=== PATIENT | male | born 1960 | race Caucasian/White ===

== ENCOUNTER → 2020-08-17 | Outpatient (CLI) | payer MEDICARE, BC | LOC: CT 07-30 13:30 | DX: M48.8X2 Other specified spondylopathies, cervical region (principal); M48.02 Spinal stenosis, cervical region; M51.34 Other intervertebral disc degeneration, thoracic region; R91.8 Other nonspecific abnormal finding of lung field; K76.9 Liver disease, unspecified; N28.89 Other specified disorders of kidney and ureter; I65.23 Occlusion and stenosis of bilateral carotid arteries; M25.78 Osteophyte, vertebrae | CPT/HCPCS: 70498; 72125; 72128; Q9967 ==

== ENCOUNTER → 2021-06-18 | Outpatient (CLI) | payer MEDICARE, BC ==
[~2021-06-18] MED LIST: AMLODIPINE BESYL5 MG PO; CRESTOR10 MG PO; CYMBALTA60 MG PO; DOCUSATE SODIU100 MG PO; FLOMAX 0.4 MG0.4 MG PO; HYDROCORTISONE10 MG PO; HYDROCORTISONE20 MG PO; LOSARTAN POTASS50 MG PO; NEURONTIN 100100 MG PO; NICOTINE PATCH1 EAC1 TD; PROTONIX 40 MG40 M1 PO; TESTOSTERONE CYP; TRAZODONE HCL100 MG PO; ULTRAM50 MG PO
[2021-06-18 09:06] LABS: RED BLOOD COUNT 4.7 M/UL (4.20-5.50); WHITE BLOOD COUNT 10.2 K/UL (4.5-11.0)
[2021-06-18 10:08] LABS: BUN/CREATININE RATIO 9 (0-10)
== END ==
LOC: OPSV2 08:00 → EDSTATUS 08:00 → OPSV2 08:16
PROVIDERS: Orthopaedic Surgery
DX: Z01.818 Encounter for other preprocedural examination (principal); G95.9 Disease of spinal cord, unspecified; M54.12 Radiculopathy, cervical region; I45.10 Unspecified right bundle-branch block
CPT/HCPCS: 36415; 71046; 80048; 81001; 85025; 85610; 85730; 87081; 93005

== ENCOUNTER → 2021-06-24 | Outpatient (CLI) | payer MEDICARE, BC | LOC: LAB 14:05 | PROVIDERS: Orthopaedic Surgery | DX: Z01.812 Encounter for preprocedural laboratory examination (principal) | CPT/HCPCS: 80048; 86850; 86900; 86901 ==

== ENCOUNTER 2021-06-25 05:28 | Inpatient (IN) | payer MEDICARE, BC ==
[~2021-06-25] VITALS: Ht 203.2 cm; Wt 114.0 kg
[~2021-06-25 05:28] MED LIST changes: -DOCUSATE SODIU100 MG PO; -NICOTINE PATCH1 EAC1 TD; -PROTONIX 40 MG40 M1 PO; -TRAZODONE HCL100 MG PO
[2021-06-25 18:25] LABS: HEMOGLOBIN 13.7 gm/dl (14.0-17.5); RED BLOOD COUNT 4.24 M/UL (4.20-5.50); WHITE BLOOD COUNT 14.2 K/UL (4.5-11.0)
[2021-06-26 04:56] LABS: HEMOGLOBIN 12.9 gm/dl (14.0-17.5); RED BLOOD COUNT 4.1 M/UL (4.20-5.50); WHITE BLOOD COUNT 14.4 K/UL (4.5-11.0)
[2021-06-26] MEDS ORDERED: TRAZODONE HCL100 MG PO (08:59)
--- NOTE | 2021-06-26 14:09 | NUR ---
PT MOVED TO [facility] ROOM 6106 PER ORDER. PT ON MONITORING EQUIPTMENT FOR MOVE. PT REMAINS STABLE DURING MOVE. HANDOFF GIVEN TO JACKIE ARCHER. PT GIVE CALL LIGHT AND INSTRUCTED TO CALL FOR ASSISTANCE.
[2021-06-27 03:05] LABS: HEMOGLOBIN 12.1 gm/dl (14.0-17.5); RED BLOOD COUNT 3.8 M/UL (4.20-5.50); WHITE BLOOD COUNT 15.8 K/UL (4.5-11.0)
[2021-06-27] MEDS ORDERED: PROTONIX 40 MG40 M1 PO (18:16)
[2021-06-27] MEDS ORDERED: DOCUSATE SODIU100 MG PO (18:16)
[2021-06-27] MEDS ORDERED: NICOTINE PATCH1 EAC1 TD (18:16)
== END 2021-06-27 20:58 | disposition home or self-care (01) | DRG 472 ==
LOC: OR 05:28 → CDU 18:25 → CCU 18:26 → PROG CARE 06-26 13:26
PROVIDERS: Internal Medicine; ADMIT Orthopaedic Surgery
PROC: 0RG1071 Fusion of Cervical Vertebral Joint with Autologous Tissue Substitute, Posterior Approach, Posterior Column, Open Approach (ICD-10-PCS; 2021-06-25)
PROC: 01N10ZZ Release Cervical Nerve, Open Approach (ICD-10-PCS; 2021-06-25)
PROC: 01N80ZZ Release Thoracic Nerve, Open Approach (ICD-10-PCS; 2021-06-25)
PROC: 4A11X4G Monitoring of Peripheral Nervous Electrical Activity, Intraoperative, External Approach (ICD-10-PCS; 2021-06-25)
PROC: 0RG4071 Fusion of Cervicothoracic Vertebral Joint with Autologous Tissue Substitute, Posterior Approach, Posterior Column, Open Approach (ICD-10-PCS; principal; 2021-06-25 07:30)
DX: M48.8X3 Other specified spondylopathies, cervicothoracic region (principal); M50.03 Cervical disc disorder with myelopathy, cervicothoracic region; N40.0 Benign prostatic hyperplasia without lower urinary tract symptoms; Z20.822 Contact with and (suspected) exposure to COVID-19; J43.9 Emphysema, unspecified; E22.0 Acromegaly and pituitary gigantism; Z96.611 Presence of right artificial shoulder joint; Z96.652 Presence of left artificial knee joint; K22.0 Achalasia of cardia; E78.5 Hyperlipidemia, unspecified; G62.9 Polyneuropathy, unspecified; M48.8X2 Other specified spondylopathies, cervical region; I10 Essential (primary) hypertension; F17.210 Nicotine dependence, cigarettes, uncomplicated; Z79.899 Other long term (current) drug therapy; Z98.890 Other specified postprocedural states
CPT/HCPCS: 36415; 72040; 72050; 76000; 80048; 80053; 83735; 85027; 86850; 86900; 86901; 97116-GP-CQ; 97161; 97166; 97535; C1713; C1762; C1781; J0690; J1040; J1100; J1170; J1200; J1885; J2370; J2405; J2704; J2710; J3010; J3370; J3475; J7040; J7120